=== PATIENT | female | born 1955 | race Caucasian/White ===

== ENCOUNTER 2018-12-06 07:44 | Outpatient (CLI) | payer BC | END 2018-12-06 07:45 | disposition home or self-care (01) | LOC: BICMAMMO 07:44 | PROVIDERS: ATTEND Family Medicine | DX: Z12.31 Encounter for screening mammogram for malignant neoplasm of breast (principal); Z00.00 Encounter for general adult medical examination without abnormal findings; Z80.3 Family history of malignant neoplasm of breast | CPT/HCPCS: 77063; 77067 ==

== ENCOUNTER 2019-07-22 14:58 | Emergency (ER) | payer BC, MEDICARE | END 2019-07-22 15:30 | disposition home or self-care (01) | LOC: SCSER 14:58 | DX: S16.1XXA Strain of muscle, fascia and tendon at neck level, initial encounter (principal); I10 Essential (primary) hypertension; Z79.899 Other long term (current) drug therapy; Z79.82 Long term (current) use of aspirin; X50.9XXA Other and unspecified overexertion or strenuous movements or postures, initial encounter | CPT/HCPCS: 99283 ==

== ENCOUNTER 2019-12-05 07:16 | Outpatient (CLI) | payer MEDICARE, BC ==
--- NOTE | 2019-12-05 08:59 | MRI ---
LEFT KNEE MRI WITHOUT IV CONTRAST: Date: 12/05/2019 HISTORY: Internal derangement of left knee. Anterior left knee pain and swelling. FINDINGS: Marked irregular cartilage loss involving the femoral patellar compartment with prominent subchondral cystic changes of the patella, as well as the lateral trochlear groove. There is also irregular cart ilage loss involving the medial and lateral compartments. There is some joint fluid with some suprapa tellar recess fluid, as well as a fairly prominent popliteal fossa cyst measuring approximately 8.0 c m in craniocaudal dimension and approximately 2.0 x 3.0 cm transversely. There is abnormal signal ass ociated with the capsular meniscal junction region of the body and posterior horn/posterior body junc tion region of the medial meniscus with some irregular free edge blunting. This certainly could repre sent a capsular meniscal tear and some degenerative change. Lateral meniscus shows mild intrasubstanc e increased signal, probably degenerative. Anterior and posterior cruciate ligaments, collateral liga ment complexes, and quadriceps and patellar tendons appear intact. Minimal nonspecific prepatellar an d superficial infrapatellar subcutaneous edema changes. IMPRESSION: Severe irregular cartilage loss with prominent subchondral cystic changes involving the femoropatella r compartment. Some generalized irregular cartilage loss of the medial and lateral compartments. Mini mal superficial prepatellar and infrapatellar soft tissue edema and swelling. Somewhat oblique linear area of abnormal signal at the capsular meniscal junction region of the posterior horn/posterior bod y of medial meniscus, probably a tear, with some associated medial and lateral meniscal degenerative signal. Evidence for joint effusion, including a popliteal fossa cyst with some superior and inferior extension. Other findings as above. POS: OFF
== END 2019-12-05 07:17 | disposition home or self-care (01) ==
LOC: BICMRI 07:16
PROVIDERS: ATTEND Orthopaedic Surgery
DX: M23.92 Unspecified internal derangement of left knee (principal); M25.462 Effusion, left knee; M71.22 Synovial cyst of popliteal space [Baker], left knee; M94.8X6 Other specified disorders of cartilage, lower leg